=== PATIENT | female | born 1990 | race Two or more races ===

== ENCOUNTER 2021-11-01 12:25 | Emergency (ER) | payer BC ==
[~2021-11-01] VITALS: Ht 157.5 cm; Wt 68.2 kg
[2021-11-01 13:13] LABS: Urine Bacteria NONE SEEN /hpf (None Seen); Urine Blood 2+ /uL (Negative); Urine Specific Gravity 1.019 (1.001-1.035); Urine WBC 1 /hpf (0 - 5)
[2021-11-01 13:15] LABS: Basophils # (auto) 0.1 10 ^3/uL (0-0.2); Basophils % (auto) 1.2 % (0.0-2.0); Eosinophils # (auto) 0.1 10 ^3/uL (0-0.8); Eosinophils % (auto) 1.7 % (0.0-7.0); Lymphocytes # (auto) 1.6 10 ^3/uL (0.4-5.4); Lymphocytes % (auto) 27.2 % (10.0-50.0); Mean Corpuscular Hemoglobin 30.6 pg (28.0-32.0); Mean Corpuscular Hgb Conc. 33.4 g/dL (32.0-36.0); Mean Corpuscular Volume 91.4 fL (80.0-100.0); Monocytes # (auto) 0.5 10 ^3/uL (0-1.3); Monocytes % (auto) 9.1 % (0.0-12.0); Neutrophils # (auto) 3.7 10 ^3/uL (1.6-8.6); Neutrophils % (auto) 60.8 % (37.0-80.0); Red Blood Cells 4.59 10^6/uL (4.0-5.20); Red Cell Distribution Width 13.7 % (11.8-14.3)
[2021-11-01 13:28] LABS: Albumin 3.7 g/dL (3.4-5.0); Calcium 9.1 mg/dL (8.5-10.1); Potassium 3.7 mmol/L (3.5-5.1)
[2021-11-01 13:31] LABS: BUN/Creatinine Ratio 9.5; Bilirubin, Total 0.4 mg/dL (0.2-1.0); Total Protein 7.3 g/dL (6.4-8.2)
[2021-11-01 16:35] LABS: Partial Thromboplastin Time 27.1 sec (24.6-33.4)
[2021-11-01] MEDS ORDERED: HYDROcodone-ACET 5/325MG TAB PO ONE ×2 (17:30→21:00)
[2021-11-01] MEDS ORDERED: METHOTREXATE SODIUM 25 MG/ML 2ML SDV INJ IM ONE (17:45)
[2021-11-01 20:00] VITALS: BP 176/94
[2021-11-01] MEDS ORDERED: HYDR1TAB97 PO (20:14)
[2021-11-01] MEDS ORDERED: ONDA-144 PO (20:14)
== END 2021-11-01 20:55 | disposition home or self-care (01) ==
LOC: ER 12:32
DX: O00.90 Unspecified ectopic pregnancy without intrauterine pregnancy (principal); O20.8 Other hemorrhage in early pregnancy; Z3A.00 Weeks of gestation of pregnancy not specified
CPT/HCPCS: 36415; 76801; 76817; 80053; 81001; 81025; 84702; 85025; 85610; 85730; 86850; 86900; 86901; 93005; 96372; 99285; J9250

== ENCOUNTER 2023-06-06 15:06 | Inpatient (IN) | payer BC ==
[~2023-06-06] VITALS: Ht 157.5 cm; Wt 87.3 kg
[~2023-06-06 15:06] MED LIST: HYDR1TAB97 PO; ONDA-144 PO
[2023-06-06 16:15] LABS: Basophils # (auto) 0 10 ^3/uL (0-0.2); Basophils % (auto) 0.6 % (0.0-2.0); Eosinophils # (auto) 0.2 10 ^3/uL (0-0.8); Eosinophils % (auto) 4.1 % (0.0-7.0); Hemoglobin 13.6 g/dL (12.2-16.2); Lymphocytes # (auto) 2.1 10 ^3/uL (0.4-5.4); Lymphocytes % (auto) 35.2 % (10.0-50.0); Mean Corpuscular Hemoglobin 30.6 pg (28.0-32.0); Mean Corpuscular Hgb Conc. 33.1 g/dL (32.0-36.0); Mean Corpuscular Volume 92.5 fL (80.0-100.0); Monocytes # (auto) 0.5 10 ^3/uL (0-1.3); Monocytes % (auto) 8.5 % (0.0-12.0); Neutrophils # (auto) 3.1 10 ^3/uL (1.6-8.6); Neutrophils % (auto) 51.6 % (37.0-80.0); Nucleated Red Blood Cells % 0.1 %; Red Blood Cells 4.43 10^6/uL (4.0-5.20); Red Cell Distribution Width 12.4 % (11.8-14.3)
[2023-06-06 16:18] LABS: Urine Amorphous Crystal FEW /hpf (None Seen); Urine Bacteria FEW /hpf (None Seen); Urine Blood 3+ /uL (Negative); Urine Clarity Clear (Clear); Urine Color Colorless (Yellow); Urine Protein, UAD Negative (Negative); Urine Specific Gravity 1.008 (1.001-1.035); Urine Urobilinogen Normal (Negative); Urine WBC 4 /hpf (0 - 5); Urine pH 5.5 (5.0-9.0)
[2023-06-06 16:25] LABS: Chloride 108 mmol/L (98-107); Sodium 140 mmol/L (136-145)
[2023-06-06 16:26] LABS: Anion Gap 8 (5-15); Calcium 9.2 mg/dL (8.5-10.1); Carbon Dioxide 24 mmol/L (20-30)
[2023-06-06 16:31] LABS: BUN/Creatinine Ratio 9.1 (10.0-20.0); Blood Urea Nitrogen 7 mg/dL (9-23); Glucose 98 mg/dL (74-106)
[2023-06-06] MEDS ORDERED: MORPHINE SULFATE INJ 2 MG/ml SYRG IV PRN (17:45)
[2023-06-06] MEDS ORDERED: NITROGLYCERIN 0.4 MG SL TAB SL PRN (17:45)
[2023-06-06] MEDS ORDERED: ACETAMINOPHEN 325 MG TAB PO PRN (17:45)
[2023-06-06] MEDS ORDERED: hydrALAZINE HCL 20 MG/ML VL IV SCH (18:00)
[2023-06-06] MEDS: amLODIPine BESYLATE 5 MG TAB PO ONE (20:15)
[2023-06-06] MEDS: LOSARTAN POTASSIUM 50 MG TAB PO ONE (20:15)
[2023-06-06] MEDS: hydroCHLOROthiazide 25 MG TAB PO ONE (20:15)
[2023-06-07] MEDS: traMADol HCL 50 MG TAB PO PRN (05:45)
[2023-06-07] MEDS: amLODIPine BESYLATE 5 MG TAB PO SCH (05:46)
[2023-06-07] MEDS: hydroCHLOROthiazide 25 MG TAB PO SCH (05:47)
[2023-06-07 07:20] LABS: Alanine Aminotransferase 51 U/L (7-40); Albumin 4.5 g/dL (3.2-4.8); Alkaline Phosphatase 58 U/L (46-116); Anion Gap 8 (5-15); Aspartate Aminotransferase 53 U/L (13-40); BUN/Creatinine Ratio 8.2 (10.0-20.0); Bilirubin, Total 0.7 mg/dL (0.2-1.0); Blood Urea Nitrogen 6 mg/dL (9-23); Calcium 9.7 mg/dL (8.7-10.4); Carbon Dioxide 25 mmol/L (20-30); Chloride 103 mmol/L (98-107); Glucose 114 mg/dL (74-106); Potassium 3.5 mmol/L (3.5-5.1); Sodium 136 mmol/L (136-145)
[2023-06-07 07:21] LABS: Total Protein 7.3 g/dL (5.7-8.2)
[2023-06-07] MEDS: cloNIDine HCL 0.1 MG TAB PO ONE (09:44)
[2023-06-07] MEDS ORDERED: hydroCHLOROthiazide 25 MG TAB PO SCH (10:00)
[2023-06-07] MEDS ORDERED: amLODIPine BESYLATE 5 MG TAB PO SCH (10:00)
[2023-06-07] MEDS: LOSARTAN POTASSIUM 50 MG TAB PO SCH (10:24)
[2023-06-07] MEDS: ONDANSETRON HCL 4 MG/2 ML VIAL IV PRN (10:35)
[2023-06-07] MEDS ORDERED: LOSA-534 PO (13:15)
[2023-06-07] MEDS ORDERED: TRIA75TA11 PO (13:15)
[2023-06-07] MEDS ORDERED: AMLO1TAB23 PO (13:15)
[2023-06-07] MEDS: ONDANSETRON HCL 4 MG/2 ML VIAL IV ONE (13:47)
[2023-06-07 14:34] VITALS: BP 125/59; PULSE 68; RESP 18; TEMP 97.6; O2SAT 98
== END 2023-06-07 14:43 | disposition home or self-care (01) | DRG 305 ==
LOC: ER 15:06 → OVERFLOW 17:40
PROVIDERS: ADMIT Nurse Practitioner Family; ATTEND Nurse Practitioner Family
DX: I16.0 Hypertensive urgency (principal); E66.9 Obesity, unspecified; Z68.35 Body mass index [BMI] 35.0-35.9, adult; Z79.899 Other long term (current) drug therapy
CPT/HCPCS: 36415; 70450; 70551; 80048; 80053; 81001; 85025; G0378; J2405